=== PATIENT | male | born 1950 | race Caucasian/White ===

== ENCOUNTER 2019-12-13 17:46 | Emergency (ER) | payer MEDICARE, BC ==
[~2019-12-13] VITALS: Ht 182.9 cm; Wt 105.0 kg
--- NOTE | 2019-12-13 18:03 | NUR ---
FIRST CONTACT WITH PT. PT STATED "I HAVE KIDNEY STONE. I WAS IN [facility] A WEEK AGO WITH IT. MY BACK ON THE RIGHT SIDE HURTS." PT C/O RIGHT SIDED ABD AND FLANK PAIN WITH BILATERAL TESTICLES PAIN. PT'S AOX4. RESPS EVEN AND UNLABROED. BP/SPO2 MONITORS IN PLACE. CALL LIGHT WITHIN REACH. NO C/O N/V/D, TRAUMA, SYNCOPE, CP, SOB.
--- NOTE | 2019-12-13 18:04 | NUR ---
PT AMB TO BR WITH STEADY GAIT. URINE CUP GIVEN.
[2019-12-13] MEDS ORDERED: KETOROLAC 30 MG/1 ML ONE (18:24)
[2019-12-13] MEDS ORDERED: MORPHINE SULFATE 4 MG/ML, 1ML ONE (18:24)
[2019-12-13] MEDS ORDERED: KETOROLAC 30 MG/1 ML IVPush ONE (18:30)
[2019-12-13] MEDS ORDERED: MORPHINE SULFATE 4 MG/ML, 1ML IVPush PRN (18:30)
[2019-12-13] MEDS ORDERED: SODIUM CHLORIDE FLUSH 10ML SYR IVF ONE (18:30)
[2019-12-13] MEDS ORDERED: SODIUM CHLORIDE 0.9% 1,000ML IV ONE (18:30)
[2019-12-13 18:38] LABS: BASOPHILS # (AUTO) 0.03 x10^3/uL (0-0.1); BASOPHILS % (AUTO) 0 % (0-1); EOSINOPHILS # (AUTO) 0.02 x10^3/uL (0-0.4); EOSINOPHILS % (AUTO) 0 % (1-7); LYMPHOCYTES # (AUTO) 1.29 x10^3/uL (1-3.4); LYMPHOCYTES % (AUTO) 13 % (22-44); MD NO; MEAN CORPUSCULAR HEMOGLOBIN 29.5 pg (27.5-34.5); MEAN CORPUSCULAR HGB CONC 33.9 g/dL (33.2-36.2); MEAN PLATELET VOLUME 8.5 fL (7.4-10.4); MONOCYTES # (AUTO) 0.43 x10^3/uL (0.2-0.8); MONOCYTES % (AUTO) 4 % (2-9); NEUTROPHILS # (AUTO) 8.35 x10^3/uL (1.8-6.8); NEUTROPHILS % (AUTO) 83 % (42-75); PLATELET COUNT 259 x10^3/uL (130-400); RED BLOOD COUNT 5.17 x10^6/uL (4.38-5.82); RED CELL DISTRIBUTION WIDTH 13.7 % (9.4-14.8)
[2019-12-13 18:40] LABS: ALBUMIN 3.6 g/dL (3.4-5.0); ANION GAP 8 mmol/L (5-15); CALCIUM 8.6 mg/dL (8.5-10.1); CHLORIDE 107 mmol/L (98-107)
--- NOTE | 2019-12-13 18:40 | NUR ---
PIV EST ON L AC WITH NO COMPLICATIONS. PT MEDICATED PER EMAR. PT TOLERATED WELL. NS INFUSING AT THIS TIME.
--- NOTE | 2019-12-13 18:40 | NUR ---
URINE COLLECTED AND UA SENT.
--- NOTE | 2019-12-13 18:52 | NUR ---
PT TO CT AT THIS TIME.
--- NOTE | 2019-12-13 18:56 | NUR ---
REPORT GIVEN TO MEHUL LOPEZ.
[2019-12-13 18:58] LABS: MICROSCOPIC INDICATED
--- NOTE | 2019-12-13 20:10 | NUR ---
MONICA RN: PT C/O CONTINUED NAUSEA. ERP TO BE NOTIFIED. CHART UP FOR RECHECK. AWAITING FURTHER DISPO.
[2019-12-13] MEDS ORDERED: ONDANSETRON 2MG/ML, 2ML ONE (20:13)
[2019-12-13] MEDS ORDERED: ONDANSETRON 2MG/ML, 2ML IVPush ONE (20:30)
[2019-12-13 20:42] VITALS: BP 110/53
== END 2019-12-13 20:44 | disposition home or self-care (01) ==
LOC: ED 18:12
DX: N13.2 Hydronephrosis with renal and ureteral calculous obstruction (principal)
CPT/HCPCS: 36415; 74176; 80048; 81001; 82040; 85025; 96374; 96375; 99284; J1885; J2270; J2405; J7030